=== PATIENT | male | born 1975 | race Caucasian/White ===

== ENCOUNTER → 2017-05-16 | Outpatient (CLI) | payer OTHER | END | disposition home or self-care (01) | LOC: MI 09:39 | PROC: BQ38YZZ Magnetic Resonance Imaging (MRI) of Left Knee using Other Contrast (ICD-10-PCS; principal; 2017-05-16) | PROC: BQ37YZZ Magnetic Resonance Imaging (MRI) of Right Knee using Other Contrast (ICD-10-PCS; 2017-05-16) | DX: M25.561 Pain in right knee (principal); M25.562 Pain in left knee | CPT/HCPCS: A9577; A9579 ==